=== PATIENT | female | born 1935 | race Caucasian/White ===

== ENCOUNTER 2017-06-27 11:55 | Emergency (ER) | payer MEDICARE, OTHER ==
[~2017-06-27] VITALS: Ht 167.6 cm; Wt 63.5 kg
[~2017-06-27 11:55] MED LIST: LEVOTHYROXIN0.075 MG PO; [UNRECOGNIZED DRUG - OTHER] PO
[2017-06-27] MEDS ORDERED: IBUPROFEN 800800 M1 PO (12:07)
[2017-06-27] MEDS ORDERED: HYDROCODONE-AP1 EAC6 PO ×2 (12:07→12:38)
[2017-06-27] MEDS ORDERED: FLEXERIL PO (12:07)
[2017-06-27] MEDS ORDERED: TORADOL 10 MG T10 MG PO (12:38)
[2017-06-27 12:52] VITALS: BP 200/104
== END 2017-06-27 12:52 | disposition home or self-care (01) ==
LOC: M.ERS 11:55
DX: M54.32 Sciatica, left side (principal); E03.9 Hypothyroidism, unspecified; Z88.1 Allergy status to other antibiotic agents; Z88.8 Allergy status to other drugs, medicaments and biological substances